=== PATIENT | male | born 1950 | race Caucasian/White ===

== ENCOUNTER 2017-12-10 16:39 | Observation (INO) | payer OTHER ==
[~2017-12-10] VITALS: Ht 182.9 cm; Wt 99.4 kg
[~2017-12-10 16:39] MED LIST: LO-DOSE ASPIRIN81 M1 PO; MOBIC15 MG PO; MULTIPLE VITAM1 EAC1 PO; NORCO 5/3251 TABLET PO
[2017-12-10 17:47] LABS: HEMATOCRIT 39.1 % (38.0-50.0); HEMOGLOBIN 14.1 G/DL (12.5-16.6); MCH 30.9 PG (29.0-34.0); MCHC 36.1 G/DL (30.0-36.0); MCV 85.6 FL (86-99); PLATELET COUNT 278 K/uL (156-360); RBC DIS.WIDTH-CV 12.3 % (11.8-14.6); RBC DIS.WIDTH-SD 38.3 % (39-53); RED BLOOD COUNT 4.57 M/uL (4.00-5.50); WHITE BLOOD COUNT 8.4 K/uL (4.1-10.2)
[2017-12-10 18:09] LABS: CHLORIDE 106 mEq/L (99-109); POTASSIUM 3.7 mEq/L (3.7-5.4); SODIUM 143 mEq/L (136-147)
[2017-12-10 18:11] LABS: GLUCOSE 98 mg/dL (70-99)
[2017-12-10 18:13] LABS: TROP-I INTERPRETATION NEGATIVE; TROPONIN-I < 0.01 ng/mL (0.0-0.30)
[2017-12-10 18:15] LABS: CREATININE 1.1 mg/dL (0.6-1.3); GFR ESTIMATE (CALCULATED) > 59 mL/min/ (58.99-99999); UREA NITROGEN (BUN) 23 mg/dL (9-23)
[2017-12-10] MEDS ORDERED: FLEXERIL10 MG PO (19:53)
[2017-12-10 22:15] LABS: ALBUMIN 4.5 g/dL (3.2-4.8)
[2017-12-10 22:17] LABS: TOTAL PROTEIN 7.7 g/dL (6.4-8.3)
[2017-12-10 22:19] LABS: TOTAL BILIRUBIN 0.4 mg/dL (0.0-1.0)
[2017-12-10 22:20] LABS: ALKALINE PHOSPHATASE 106 IU/L (3-129)
[2017-12-10 22:23] LABS: ALT (GPT) 19 IU/L (3-49); AST (GOT) 16 IU/L (2-34); DIRECT BILIRUBIN 0.1 mg/dL (0.0-0.3)
[2017-12-10 22:24] LABS: LIPASE 60 U/L (1.0-51.0)
[2017-12-10 23:15] VITALS: BP 166/81
[2017-12-11 01:18] LABS: TROP-I INTERPRETATION NEGATIVE; TROPONIN-I < 0.01 ng/mL (0.0-0.30)
[2017-12-11 04:19] VITALS: BP 119/80
[2017-12-11 05:11] LABS: HEMATOCRIT 39.1 % (38.0-50.0); HEMOGLOBIN 13.4 G/DL (12.5-16.6); MCH 29.5 PG (29.0-34.0); MCHC 34.3 G/DL (30.0-36.0); MCV 86.1 FL (86-99); PLATELET COUNT 231 K/uL (156-360); RBC DIS.WIDTH-CV 12.3 % (11.8-14.6); RBC DIS.WIDTH-SD 39.1 % (39-53); RED BLOOD COUNT 4.54 M/uL (4.00-5.50); WHITE BLOOD COUNT 6.1 K/uL (4.1-10.2)
[2017-12-11 05:29] LABS: TROP-I INTERPRETATION NEGATIVE; TROPONIN-I < 0.01 ng/mL (0.0-0.30)
[2017-12-11 05:33] LABS: CHLORIDE 107 MEQ/L (99-109); CREATININE 1.1 MG/DL (0.6-1.3); GFR ESTIMATE (CALCULATED) > 59 mL/min/ (58.99-99999); GLUCOSE 111 mg/dL (70-99); POTASSIUM 3.8 MEQ/L (3.7-5.4); SODIUM 142 MEQ/L (136-147); UREA NITROGEN (BUN) 22 mg/dL (9-23)
[2017-12-11 07:23] VITALS: BP 135/78
[2017-12-11] MEDS ORDERED: LOPRESSOR25 MG PO (09:44)
[2017-12-11 12:14] VITALS: BP 147/85
== END 2017-12-11 14:23 | disposition home or self-care (01) ==
LOC: EME 16:39 → 4SOUTH 20:45 → EDOF 20:45 → ENRESERV 20:49 → 4SOUTH 23:16 → ENPENDDIS 12-11 14:02 → 4SOUTH 12-11 14:23
PROVIDERS: Hospitalist
DX: R07.9 Chest pain, unspecified (principal); Z82.49 Family history of ischemic heart disease and other diseases of the circulatory system; Z87.891 Personal history of nicotine dependence; I49.1 Atrial premature depolarization; G89.29 Other chronic pain; M54.9 Dorsalgia, unspecified; G43.909 Migraine, unspecified, not intractable, without status migrainosus; M19.90 Unspecified osteoarthritis, unspecified site; R06.02 Shortness of breath; R42 Dizziness and giddiness; Z83.3 Family history of diabetes mellitus
CPT/HCPCS: 71046; 80048; 80076; 83690; 84484; 85027; 93005; 99281; 99285; G0378; J1650

== ENCOUNTER 2017-12-31 11:27 | Day surgery (SDC) | payer OTHER ==
[~2017-12-31] VITALS: Ht 182.9 cm; Wt 99.0 kg
[~2017-12-31 11:27] MED LIST changes: +FLEXERIL10 MG PO; +LOPRESSOR25 MG PO
== END 2017-12-31 18:53 | disposition home or self-care (01) ==
LOC: CATH 11:27
DX: I25.119 Atherosclerotic heart disease of native coronary artery with unspecified angina pectoris (principal); Z79.82 Long term (current) use of aspirin; Z87.891 Personal history of nicotine dependence
CPT/HCPCS: C1769; C1887; C1894; J0461; J1644; J2250; J3010; J7040